=== PATIENT | female | born 1935 | race Caucasian/White ===

== ENCOUNTER 2020-09-26 11:12 | Emergency (ER) | payer MEDICARE, BC ==
[2020-09-26] MEDS ORDERED: Sodium Chloride 0.9% 10 ML Syringe FLUSH PRN (11:25)
[2020-09-26 11:26] VITALS: BP 172/88; PULSE 85
--- NOTE | 2020-09-26 11:32 | EDM.PDOC ---
ED HPI GENERAL MEDICAL PROBLEM - General Chief Complaint: Chest Pain Stated Complaint: SOB /CHEST PAIN Time Seen by Provider: 09/26/20 11:20 Source of Information: Reports: Patient, RN Notes Reviewed History Limitations: Reports: No Limitations - History of Present Illness INITIAL COMMENTS - FREE TEXT/NARRATIVE: Patient is an 85-year-old female who presents to the ED for the evaluation of her left-sided chest pain. The patient notes this started roughly 30 minutes ago, almost directly after she got her second dose of her vaccine for COVID-19. Patient noted that she had left-sided chest pressure or heaviness, but states this has resolved since then, she noted also some pain in her left arm. She states that she had some shortness of breath shortly prior to the vaccine, and afterwards when she had the chest pain, but she does not appear to be dyspneic at this time, O2 sats are 95% on room air, heart rate is 86 bpm, blood pressure is 172/88. Patient does have a cardiac history and notes that she has 4 stents placed already. Her primary care provider is Dr. Barth, and her picket labor union is Dr. Sneed. Patient states that she felt well prior to this, and has had no sick symptoms like fevers or chills, cough, nausea/vomiting/diarrhea. Treatments WATER MAIN INSPECTOR: Reports: Other (see below) Other Treatments WATER MAIN INSPECTOR: none Left Arm Pain Score (Numeric/FACES): 7 - Related Data Allergies Allergy/AdvReac Type Severity Reaction Status Date / Time Penicillins Allergy Severe Swollen Verified 09/26/20 11:26 Tongue clindamycin AdvReac Severe Stomach Verified 09/26/20 11:26 Ache Home Meds: Home Meds Ascorbic Acid [Acerola C] 500 mg PO DAILY 05/27/15 [History] Aspirin [Halfprin] 81 mg PO BRK 05/27/15 [History] Clopidogrel [Plavix] 75 mg PO DAILY 05/27/15 [History] Cyclobenzaprine [Flexeril] 10 mg PO BEDTIME 05/27/15 [History] Isosorbide Mononitrate [Imdur] 30 mg PO DAILY 05/27/15 [History] Metoprolol Succinate [Toprol XL] 100 mg PO DAILY 05/27/15 [History] Nitroglycerin [Nitrostat] 0.4 mg SL ASDIRECTED PRN 05/27/15 [History] Pantoprazole [Protonix] 40 mg PO DAILY 05/27/15 [History] Temazepam [Restoril] 30 mg PO BEDTIME 05/27/15 [History] atorvaSTATin [Lipitor] 40 mg PO DAILY 05/27/15 [History] traMADol [Ultram] 50 mg PO Q6H PRN 05/27/15 [History] Past Medical History Cardiovascular History: Reports: Stents (x4) - Past Surgical History Other Musculoskeletal Surgeries/Procedures:: rotator cuff problems. ED ROS GENERAL - Review of Systems Review Of Systems: Comprehensive ROS is negative, except as noted in HPI. ED EXAM, GENERAL - Physical Exam Exam: See Below Exam Limited By: No Limitations General Appearance: Alert, WD/WN, No Apparent Distress Respiratory/Chest: No Respiratory Distress, Lungs Clear, Normal Breath Sounds, No Accessory Muscle Use, Chest Non-Tender Cardiovascular: Normal Peripheral Pulses, Regular Rate, Rhythm, No Edema Peripheral Pulses: 2+: Radial (L), Radial (R) Extremities: Normal Inspection, Normal Capillary Refill Neurological: Alert, Oriented, Normal Cognition, No Motor/Sensory Deficits Psychiatric: Normal Affect, Normal Mood Skin Exam: Warm, Dry, Intact, Normal Color, No Rash #1 Interpretation EKG Date: 09/26/20 Time: :19 Rhythm: NSR Rate (Beats/Min): 86 [place]: LAD-Left [place] Deviation (-39 ) P-Wave: Present QRS: Normal ST-T: Normal QT: Normal EKG Interpretation Comments: No obvious ischemia or acute ST changes noted, reviewed by myself and Dr. Mccarthy. Course - Vital Signs Last Recorded V/S: Last Vital Signs Temp 96.6 F L 09/26/20 11:24 Pulse 85 09/26/20 11:24 Resp 20 09/26/20 11:24 BP 172/88 H 09/26/20 11:24 Pulse Ox 95 09/26/20 11:24 - Orders/Labs/Meds Orders: Active Orders 24 hr Category Date Time Status EKG Documentation Completion [RC] STAT Care 09/26/20 11:25 Active Peripheral IV Care [RC] . DIRECTED Care 09/26/20 11:25 Active Sodium Chloride 0.9% [Saline Flush] Med 09/26/20 11:25 Active 10 ml FLUSH ASDIRECTED PRN Peripheral IV Insertion Adult [OM.PC] Stat Oth 09/26/20 11:25 Ordered Medication Orders Sodium Chloride (Saline Flush) 10 ml FLUSH ASDIRECTED PRN PRN Reason: Keep Vein Open Last Admin: 09/26/20 11:30 Dose: 10 ml Documented by: HAN Labs: Laboratory Tests 09/26/20 09/26/20 09/26/20 Range/Units 11:25 11:25 11:25 WBC 7.23 (3.98-10.04) K/mm3 RBC 4.99 (3.98-5.22) M/mm3 Hgb 14.8 (11.2-15.7) gm/dl Hct 43.6 (34.1-44.9) % MCV 87.4 (79.4-94.8) fl MCH 29.7 (25.6-32.2) pg MCHC 33.9 (32.2-35.5) g/dl RDW Std Deviation 41.2 (36.4-46.3) fL Plt Count 212 (182-369) K/mm3 MPV 9.3 L (9.4-12.3) fl Neut % (Auto) 65.9 (34.0-71.1) % Lymph % (Auto) 25.6 (19.3-51.7) % Esmeralda % (Auto) 6.9 (4.7-12.5) % Eos % (Auto) 1.2 (0.7-5.8) Baso % (Auto) 0.1 (0.1-1.2) % Neut # (Auto) 4.76 (1.56-6.13) K/mm3 Lymph # (Auto) 1.85 (1.18-3.74) K/mm3 Esmeralda # (Auto) 0.50 H (0.24-0.36) K/mm3 Eos # (Auto) 0.09 (0.04-0.36) K/mm3 Baso # (Auto) 0.01 (0.01-0.08) K/mm3 PT 10.9 (9.7-12.0) SECONDS INR 1.02 APTT 27.3 (21.7-31.4) SECONDS Sodium 137 (136-145) mEq/L Potassium 3.7 (3.5-5.1) mEq/L Chloride 97 L (98-107) mEq/L Carbon Dioxide 24 (21-32) mEq/L Anion Gap 19.7 H (5-15) BUN 12 (7-18) mg/dL Creatinine 1.0 (0.55-1.02) mg/dL Est Cr Clr Drug Dosing 29.54 mL/min Estimated GFR (MDRD) 53 (>60) mL/min BUN/Creatinine Ratio 12.0 L (14-18) Glucose 197 H (83-115) mg/dL Calcium 9.3 (8.5-10.1) mg/dL Magnesium 1.5 L (1.8-2.4) mg/dl Total Bilirubin 0.6 (0.2-1.0) mg/dL AST 16 (15-37) U/L ALT 26 (14-59) U/L Alkaline Phosphatase 129 H (46-116) U/L CK-MB (CK-2) < 0.5 (0-3.6) ng/ml Troponin I < 0.017 (0.00-0.056) ng/mL NT-Pro-B Natriuret Pep (0-450) pg/mL Total Protein 7.0 (6.4-8.2) g/dl Albumin 3.7 (3.4-5.0) g/dl Globulin 3.3 gm/dL Albumin/Globulin Ratio 1.1 (1-2) 09/26/20 09/26/20 Range/Units 11:25 14:29 WBC (3.98-10.04) K/mm3 RBC (3.98-5.22) M/mm3 Hgb (11.2-15.7) gm/dl Hct (34.1-44.9) % MCV (79.4-94.8) fl MCH (25.6-32.2) pg MCHC (32.2-35.5) g/dl RDW Std Deviation (36.4-46.3) fL Plt Count (182-369) K/mm3 MPV (9.4-12.3) fl Neut % (Auto) (34.0-71.1) % Lymph % (Auto) (19.3-51.7) % Esmeralda % (Auto) (4.7-12.5) % Eos % (Auto) (0.7-5.8) Baso % (Auto) (0.1-1.2) % Neut # (Auto) (1.56-6.13) K/mm3 Lymph # (Auto) (1.18-3.74) K/mm3 Esmeralda # (Auto) (0.24-0.36) K/mm3 Eos # (Auto) (0.04-0.36) K/mm3 Baso # (Auto) (0.01-0.08) K/mm3 PT (9.7-12.0) SECONDS INR APTT (21.7-31.4) SECONDS Sodium (136-145) mEq/L Potassium (3.5-5.1) mEq/L Chloride (98-107) mEq/L Carbon Dioxide (21-32) mEq/L Anion Gap (5-15) BUN (7-18) mg/dL Creatinine (0.55-1.02) mg/dL Est Cr Clr Drug Dosing mL/min Estimated GFR (MDRD) (>60) mL/min BUN/Creatinine Ratio (14-18) Glucose (83-115) mg/dL Calcium (8.5-10.1) mg/dL Magnesium (1.8-2.4) mg/dl Total Bilirubin (0.2-1.0) mg/dL AST (15-37) U/L ALT (14-59) U/L Alkaline Phosphatase (46-116) U/L CK-MB (CK-2) (0-3.6) ng/ml Troponin I < 0.017 (0.00-0.056) ng/mL NT-Pro-B Natriuret Pep 63 (0-450) pg/mL Total Protein (6.4-8.2) g/dl Albumin (3.4-5.0) g/dl Globulin gm/dL Albumin/Globulin Ratio (1-2) Meds: Medications Generic Name Dose Route Start Last Admin Trade Name Freq PRN Reason Stop Dose Admin Sodium Chloride 10 ml 09/26/20 11:25 09/26/20 11:30 Saline Flush FLUSH 10 ml ASDIRECTED PRN Administration Keep Vein Open Discontinued Medications Generic Name Dose Route Start Last Admin Trade Name Freq PRN Reason Stop Dose Admin Magnesium Sulfate 2 gm/ Premix 50 mls @ 25 mls/hr 09/26/20 12:39 09/26/20 12:57 IV 09/26/20 14:38 25 mls/hr ONETIME ONE Administration - Re-Assessments/Exams Free Text/Narrative Re-Assessment/Exam: 09/26/20 11:30 Patient presents to the ED for the evaluation of her left-sided chest discomfort. There are no ST abnormalities noted on her EKG, and patient notes that he has gotten better since she has been here however we will get labs, EKG, chest x-ray for evaluation. 09/26/20 12:43 Laboratory evaluation demonstrates no focal acute abnormalities however her magnesium is just a touch low at 1.5, we will go ahead and give her 2 g IV for supplementation. We will do a repeat troponin at 1430, to do a 3-hour rule out, CK-MB was still pending at this time, troponin was undetectably low. Chest x- ray was also unremarkable for any acute findings. 09/26/20 15:07 The patient's 3-hour troponin is undetectably low as well. We will go ahead and discharge the patient with general conservative recommendations have her follow-up in the ER if her symptoms change or worsen. Departure - Departure Time of Disposition: 15:08 Disposition: Home, Self-Care 01 Condition: Good Clinical Impression: Atypical chest pain Instructions: Nonspecific Chest Pain, Adult, [id number] Referrals: Miquel Barth MD [Primary Care Provider] - Forms: ED Department Discharge Additional Instructions: You were seen in this ER today for your left-sided chest discomfort/left arm pain. An extensive work-up was done in the ER to a include a EKG, chest x-ray, and laboratory evaluation all of which are unremarkable for any sign of a myocardial infarction or heart attack at this time. Please continue to monitor your symptoms at home, please be aware that we have recently observed that after your second dose of Covid-19 vaccine, you can feel quite under the weather for the next few days, I just wanted you to be aware of this. If you should develop any sort of left chest pressure/discomfort, or pain that radiates up into the jaw or into the back, please do not hesitate to the return to the ER for acute management. Sepsis Event Note (ED) - Evaluation Sepsis Screening Result: No Definite Risk - Focused Exam Vital Signs: Vital Signs Temp Pulse Resp BP Pulse Ox 09/26/20 11:24 96.6 F L 85 20 172/88 H 95 - My Orders Last 24 Hours: My Active Orders 09/26/20 11:25 EKG Documentation Completion [RC] STAT Peripheral IV Care [RC] . DIRECTED Sodium Chloride 0.9% [Saline Flush] 10 ml FLUSH ASDIRECTED PRN Peripheral IV Insertion Adult [OM.PC] Stat - Assessment/Plan Last 24 Hours: My Active Orders 09/26/20 11:25 EKG Documentation Completion [RC] STAT Peripheral IV Care [RC] . DIRECTED Sodium Chloride 0.9% [Saline Flush] 10 ml FLUSH ASDIRECTED PRN Peripheral IV Insertion Adult [OM.PC] Stat
[2020-09-26] MEDS ORDERED: Magnesium Sulfate/Water 2 GM in Premix Bag 1 BAG IV ONE (12:39)
--- NOTE | 2020-09-26 12:39 | CR ---
Chest: PA and lateral views of the chest were obtained. Comparison: Previous chest x-ray of 05/27/15. Heart size and mediastinum are normal. Lungs are clear with no acute parenchymal change. Bony structures show scoliosis within the spine with mild degenerative change within the spine. Impression: 1. Findings believed to be incidental as noted above. 2. Nothing acute is seen. Diagnostic code #2
== END 2020-09-26 15:30 | disposition home or self-care (01) ==
LOC: JD.ED 11:12
DX: R07.89 Other chest pain (principal); M79.602 Pain in left arm; Z95.5 Presence of coronary angioplasty implant and graft; Z88.0 Allergy status to penicillin; Z88.1 Allergy status to other antibiotic agents; Z79.82 Long term (current) use of aspirin; Z79.02 Long term (current) use of antithrombotics/antiplatelets; Z79.899 Other long term (current) drug therapy; R06.02 Shortness of breath
CPT/HCPCS: 36415; 71046; 71046-26; 80053; 82553; 83735; 83880; 84484; 85025; 85610; 85730; 93005; 93010; 96365; 96366; 99284; 99285-25; J3475

== ENCOUNTER 2022-02-05 16:11 | Emergency (ER) | payer MEDICARE, BC ==
[2022-02-05 18:21] VITALS: BP 129/97; PULSE 62
[2022-02-05] MEDS ORDERED: Ondansetron 4 MG Tab.DIS PO ONE ×2 (18:36→20:06)
[2022-02-05] MEDS ORDERED: HYDROmorphone 0.5 MG/0.5 ML Syringe IM ONE (18:36)
== END 2022-02-05 20:20 | disposition home or self-care (01) ==
LOC: JD.ED 16:11
DX: M67.911 Unspecified disorder of synovium and tendon, right shoulder (principal); M25.511 Pain in right shoulder; Z88.0 Allergy status to penicillin; Z88.5 Allergy status to narcotic agent; Z88.1 Allergy status to other antibiotic agents; Z79.82 Long term (current) use of aspirin; Z79.02 Long term (current) use of antithrombotics/antiplatelets; Z79.899 Other long term (current) drug therapy
CPT/HCPCS: 73030; 73080; 96372; 99283; A9270; J1170

== ENCOUNTER 2022-07-18 19:04 | Emergency (ER) | payer MEDICARE, BC ==
[2022-07-18 19:21] VITALS: BP 191/90; PULSE 74
[2022-07-18] MEDS ORDERED: Acetaminophen/Codeine 300-30 MG Tab PO ONE (21:07)
== END 2022-07-18 21:41 | disposition home or self-care (01) ==
LOC: JD.ED 19:04
DX: S83.91XA Sprain of unspecified site of right knee, initial encounter (principal); E78.00 Pure hypercholesterolemia, unspecified; I10 Essential (primary) hypertension; Z88.0 Allergy status to penicillin; Z88.5 Allergy status to narcotic agent; Z88.1 Allergy status to other antibiotic agents; Z79.899 Other long term (current) drug therapy; Z79.82 Long term (current) use of aspirin; X50.1XXA Overexertion from prolonged static or awkward postures, initial encounter
CPT/HCPCS: 73560; 73620; 99283; A9270

== ENCOUNTER 2023-02-03 10:07 | Emergency (ER) | payer MEDICARE, BC ==
[2023-02-03] MEDS ORDERED: Aspirin 81 MG Tab.Chew PO ONE (10:27)
[2023-02-03 11:05] LABS: BASOPHILS ABSOLUTE AUTO 0.02 K/mm3 (0.01-0.08); BASOPHILS PERCENT AUTO 0.3 % (0.1-1.2); EOSINOPHILS ABSOLUTE AUTO 0.23 K/mm3 (0.04-0.36); HEMATOCRIT 42.4 % (34.1-44.9); HEMOGLOBIN 14.4 gm/dl (11.2-15.7); IMMATURE GRAN ABSOLUTE AUTO 0.02 K/mm3 (0.00-0.10); IMMATURE GRAN PERCENT AUTO 0.3 % (<=1.0); LYMPHOCYTES ABSOLUTE AUTO 1.69 K/mm3 (1.18-3.74); LYMPHOCYTES PERCENT AUTO 22.4 % (19.3-51.7); MEAN CORPUSCULAR HEMOGLOBIN 29.4 pg (25.6-32.2); MEAN CORPUSCULAR VOLUME 86.7 fl (79.4-94.8); MEAN PLATELET VOLUME 9.3 fl (9.4-12.3); MONOCYTES ABSOLUTE AUTO 0.44 K/mm3 (0.24-0.36); MONOCYTES PERCENT AUTO 5.8 % (4.7-12.5); NEUTROPHILS ABSOLUTE AUTO 5.15 K/mm3 (1.56-6.13); NEUTROPHILS PERCENT AUTO 68.2 % (34.0-71.1); PLATELET COUNT,PLT 239 K/mm3 (182-369); RED BLOOD CELL COUNT 4.89 M/mm3 (3.98-5.22); WHITE BLOOD CELL COUNT,WBC 7.55 K/mm3 (3.98-10.04)
[2023-02-03 11:23] LABS: INR 1.05; PROTHROMBIN TIME 11.2 SECONDS (9.7-12.0)
[2023-02-03 11:32] LABS: A/G RATIO 1.1 (1-2); ALBUMIN 3.8 g/dl (3.4-5.0); ANION GAP 13.2 (5-15); BILIRUBIN TOTAL 1.1 mg/dL (0.2-1.0); CALCIUM 9.6 mg/dL (8.5-10.1); EST CRCL DRUG DOSING (CG) 27.93 mL/min; MAGNESIUM 1.8 mg/dL (1.8-2.4); POTASSIUM,K 4.2 mEq/L (3.5-5.1); PROTEIN TOTAL,TP 7.3 g/dl (6.4-8.2)
[2023-02-03 12:10] LABS: CKMB 1.6 ng/ml (0-3.6)
[2023-02-03 15:32] VITALS: BP 103/70; PULSE 82
== END 2023-02-03 13:02 | disposition home or self-care (01) ==
LOC: JD.ED 10:07
DX: I20.9 Angina pectoris, unspecified (principal); K21.9 Gastro-esophageal reflux disease without esophagitis; M19.90 Unspecified osteoarthritis, unspecified site; E11.9 Type 2 diabetes mellitus without complications; Z88.8 Allergy status to other drugs, medicaments and biological substances; Z88.0 Allergy status to penicillin; Z88.1 Allergy status to other antibiotic agents; Z79.82 Long term (current) use of aspirin; Z79.899 Other long term (current) drug therapy; Z79.84 Long term (current) use of oral hypoglycemic drugs
CPT/HCPCS: 36415; 71045; 71045-26; 80053; 82553; 83735; 83880; 84484; 85025; 85610; 85730; 93005; 93010; 99284; 99285